=== PATIENT | female | born 1955 ===

== ENCOUNTER 2021-07-28 05:40 | Day surgery (SDC) | payer OTHER ==
[~2021-07-28 05:40] MED LIST: ADVIL200 M1 PO
== END 2021-07-28 10:40 | disposition home or self-care (01) ==
LOC: CIR.AMB 05:40
PROVIDERS: ATTEND Surgery Surgery of the Hand
DX: M19.041 Primary osteoarthritis, right hand (principal); E66.9 Obesity, unspecified; Z20.822 Contact with and (suspected) exposure to COVID-19